=== PATIENT | female | born 1960 | race Caucasian/White ===

== ENCOUNTER 2018-09-25 05:23 | Observation (INO) | payer OTHER ==
--- NOTE | 2018-09-18 11:34 | PREOPHP ---
DATE OF ADMISSION: 09/25/2018 The patient to have surgery with Dr. Herrera De Luna on 09/25/2018. REASON FOR CONSULTATION: Consultation requested by Dr. Herrera De Luna for medical evaluation and cl earance of a 58-year-old woman about to undergo surgery. Thank you, Dr. De Luna, for allowing us to participate in the care of this patient. HISTORY OF PRESENT ILLNESS: Zahra Bowen is a 58-year-old woman, issues with her back, currently be ing admitted for correction of the above. PAST MEDICAL HISTORY AND PAST SURGICAL HISTORY: In terms of her past medical and surgical history, s he has had no medical hospitalizations. From a surgical standpoint, she had 2 C-sections and 1 breas t biopsy. She fractured her left ankle and fibula, which healed with casting. MEDICATIONS: She is currently taking the following medications: 1. Levothyroxine 75 mcg a day. 2. Pepcid [id number] once or twice a day. 3. Variety of p.r.n. medications. ALLERGIES: SHE IS NOT ALLERGIC TO ANY MEDICATIONS. SOCIAL HISTORY: The patient is , has 2 daughters. She does not smoke or drink alcohol. She drinks decaffeinated coffee. She has no difficulty sleeping at night and is employed. FAMILY HISTORY: Both parents are living. Father is 86. Mother is 81. Both are in good health. Th ree siblings are in good health. There is a family history of cancer and hypertension. No diabetes, heart, stroke or thyroid issues. REVIEW OF SYSTEMS: HEENT: Unremarkable. CARDIORESPIRATORY: She denies any chest pain or shortness of breath. GASTROINTESTINAL: No melena or hematemesis; however, does have hyperacidity symptoms. GENITOURINARY: No urgency, frequency. GYNECOLOGIC: Postmenopause, up-to-date with her doctor. MUSCULOSKELETAL: Positive for back pain. NEUROPSYCHIATRIC: Unremarkable. GENERAL HEALTH: As above. PHYSICAL EXAMINATION: VITAL SIGNS: The patient's blood pressure was 128/70, pulse was 76 and regular, respirations were 18 , temperature was 98.5, height 5 feet 3 inches, weight 190 pounds. GENERAL: The patient was noted to be a well-developed, well-nourished female, alert and cooperative, in no apparent acute distress, oriented to time, place, and person. HEAD, EARS, EYES, NOSE AND THROAT: Head was atraumatic. Eyes: Pupils were equal, reacted to light and accommodation. Fundi were benign. Tympanic membranes were unremarkable. Nose was negative. Mo uth was unremarkable. Fair oral hygiene was present. NECK: Supple without any rigidity. Trachea was midline. Thyroid was within normal limits. Neck ve ins were flat. Carotid pulses were equal. No bruits were heard. BACK: Unremarkable. CHEST: Symmetrical. BREASTS AND AXILLARY: Exam did not reveal any obvious masses. Scar from prior biopsy being noted. LUNGS: Clear. HEART: Examination of the heart PMI is fifth intercostal space at the midclavicular line. Regular s inus rhythm was noted. No significant murmurs, rubs, or gallops being elicited. ABDOMEN: Soft, good bowel sounds were noted. No significant organomegaly, masses, or tenderness. S car from prior surgeries was noted midline. GENITALIA AND PELVIRECTAL: Up-to-date Per PCP. EXTREMITIES: Not revealing any clubbing, edema or cyanosis. Peripheral pulses were physiologic. SKIN: Moist and warm without any eruptions. No gross lymphadenopathy was noted. NEUROLOGIC: Grossly intact. IMPRESSIONS: 1. Lumbar disk disease, L4-L5. 2. Hypothyroidism. 3. Gastroesophageal reflux disease. 4. Stable health. REVIEW OF LABORATORY AND OTHER DATA: Revealed the following: The patient's chemistry panel revealed normal electrolytes, glucose, BUN, creatinine, calcium and uric acid, protein, liver function test, magnesium, CBC, UA, PT and PTT were normal. The patient's EKG was borderline revealing left axis, bu t otherwise unremarkable and chest x-ray did not reveal any acute infiltrates, nor were there any acu te cardiopulmonary changes being noted. DISCUSSION: Dr. De Luna, I see no contraindication to this patient undergoing current proposed ivy duy under desired form of anesthesia. We will be more than happy to follow her along with you kizzy ponce her stay at [facility]. Thank you again, Dr. De Luna, for allowing us to participate in the care of this patient. Sincerely, Dictated By: BRIAN CRAWFORD MD SS/NTS Conf#: [id number] DID#: [id number] CC: HERRERA DE LUNA MD;*EndCC*
[2018-09-24 16:38] VITALS: BMI 33.7
[2018-09-25] VITALS (20 sets, daily range): BP systolic 114–148; BP diastolic 51–94; PULSE 80–100; RESP 10–24; Ht 160 cm; Wt 86.1 kg
[~2018-09-25] VITALS: Ht 160 cm; Wt 86.1 kg
[~2018-09-25 05:23] MED LIST: CEFAZOLIN 2 GM/50 ML (PMX) 50 ML IVPB ONE; LACTATED RINGER'S 1L BAG IV ONE; LEVO88TA3 PO
--- NOTE | 2018-09-25 06:45 | PREAC ---
Date/Time of Note Date/Time of Note DATE: 09/25/18 TIME: 06:44 Anesthesia Eval and Record Evaluation Time Pre-Procedure Interview DATE: 09/25/18 TIME: 06:44 Age 58 Sex female NPO: 8 hrs Preoperative diagnosis L4-5 HNP and spinal stenosis Planned procedure L4-5 decompression and microdiscectomy Past Medical History Past Medical History: Includes Endo: Hypothyroid GI: Obesity Surgery & Anesthesia Issues No known issue Meds Anticoagulation: No Beta Di within 24 hr: No Reason Beta Di not given: Pt. not on B-Di Reported Medications Levothyroxine Sodium* (Levothyroxine Sodium*) 88 Mcg Tablet, 88 MCG PO BEFORE BREAKFAST, #30 TAB 09/24/18 Meds reviewed: Yes Allergies Coded Allergies: No Known Allergy (Unverified , 09/25/18) Allergies Reviewed: Yes Labs/Studies Labs Reviewed: Reviewed by anesthesiologist test: N/A Pre-procedure Exam Last vitals Vital Signs Date Temp Pulse Resp B/P (MAP) Pulse Ox O2 O2 Flow FiO2 Time Delivery Rate 09/25/18 97.0 80 16 147/80 97 Room Air 06:39 (102) Airway: Adequate mouth opening Mallampati: Mallampati II Teeth: Normal Lung: Normal Heart: Normal ASA Physical Status ASA physical status: 2 Emergency: None Planned Anesthetic General/MAC: ETT Planned Pain Management Parenteral pain med Pre-operative Attestations Prior to commencing anesthesia and surgery, the patient was re-evaluated, there was verification of: *The patient's identity *The results of appropriate recent lab work and preoperative vital signs *The above evaluation not changing prior to induction *Anesthetic plan, risk benefits, alternative and complications discussed with patient/family; questions answered; patient/family understands, accepts and wishes to proceed. LEIGH MC MD Sep 25, 2018 06:45
[2018-09-25] MEDS ORDERED: CA CHLORIDE 10% 10 ML SYRINGE ONE (06:56)
[2018-09-25] MEDS ORDERED: BUPIVACAINE 0.5%/EPI (SDV) 30 ML INJ ONE (06:56)
[2018-09-25] MEDS ORDERED: POLYMYXIN/BACITRACIN 1L IRRIG ONE (06:56)
[2018-09-25] MEDS ORDERED: SODIUM CL BACTERIOSTATIC 30 ML INJ ONE (06:56)
[2018-09-25] MEDS ORDERED: HEPARIN 1000 UNITS/ML 10 ML INJ ONE (06:56)
[2018-09-25] MEDS ORDERED: THROMBIN 5000 UNIT (RECOTHROM) VIAL ONE ×2 (06:56→08:00)
--- NOTE | 2018-09-25 06:58 | HPN ---
Date/Time of Note Date/Time of Note DATE: 09/25/18 TIME: 06:58 Interval H&P Admission Note Pt. seen H&P reviewed: No system changes WYATT ENCISO MD Sep 25, 2018 06:58
[2018-09-25] MEDS ORDERED: HYDROCODONE/APAP (10/325) TAB PO PRN (07:00)
[2018-09-25] MEDS ORDERED: MAGNESIUM HYDROXIDE 30ML CUP PO PRN (07:00)
[2018-09-25] MEDS ORDERED: NALOXONE (0.4 MG/ML) INJ IV PRN (07:00)
[2018-09-25] MEDS ORDERED: HYDROmorphONE 0.5 MG/0.5 ML SYG IV PRN (07:00)
[2018-09-25] MEDS: CEFAZOLIN 1 GM/50 ML (PMX) 50 ML IVPB SCH ×3 (07:00→22:58)
[2018-09-25] MEDS ORDERED: BISACODYL 10 MG SUPP PR PRN (07:00)
[2018-09-25] MEDS ORDERED: CEPASTAT LOZENGE MT PRN (07:00)
[2018-09-25] MEDS ORDERED: ACETAMINOPHEN 325 MG TAB PO PRN (07:00)
[2018-09-25] MEDS ORDERED: DIPHENHYDRAMINE 25 MG CAP PO PRN (07:00)
[2018-09-25] MEDS ORDERED: SEVOFLURANE 15 MIN ONE (07:00)
[2018-09-25] MEDS ORDERED: DIPHENHYDRAMINE 50 MG INJ IV PRN ×2 (07:00→08:30)
[2018-09-25] MEDS ORDERED: LIDOCAINE 2% (SDV) 5 ML INJ ONE (07:03)
[2018-09-25] MEDS ORDERED: PROPOFOL 20 ML ONE (07:03)
[2018-09-25] MEDS ORDERED: GLYCOPYRROLATE 0.4 MG INJ ONE ×2 (07:03→08:03)
[2018-09-25] MEDS ORDERED: SUCCINYLCHOLINE CHLORIDE 100 MG/5 ML SYG IV ONE (07:03)
[2018-09-25] MEDS ORDERED: NEOSTIGMINE 3 MG/3 ML SYRINGE ONE ×2 (07:03→08:03)
[2018-09-25] MEDS ORDERED: ROCURONIUM 50 MG INJ ONE ×2 (07:03→08:03)
[2018-09-25] MEDS ORDERED: MEPERIDINE 100 MG INJ ONE (07:04)
[2018-09-25] MEDS ORDERED: GELATIN SIZE 100 SPONGE ONE (07:46)
[2018-09-25] MEDS ORDERED: ONDANSETRON 4 MG INJ ONE (08:02)
[2018-09-25] MEDS ORDERED: CEFAZOLIN 1 GM INJ ONE (08:02)
[2018-09-25] MEDS ORDERED: METOCLOPRAMIDE 10 MG INJ ONE (08:02)
[2018-09-25] MEDS ORDERED: ONDANSETRON 4 MG INJ IV PRN (08:30)
[2018-09-25] MEDS ORDERED: EPHEDrine 25 MG/5 ML SYG IV PRN (08:30)
[2018-09-25] MEDS ORDERED: MIDAZOLAM 1 MG/ML 2 ML INJ IV PRN (08:30)
[2018-09-25] MEDS ORDERED: METOCLOPRAMIDE 10 MG INJ IV PRN (08:30)
[2018-09-25] MEDS ORDERED: FENTAnyl 50 MCG/ML VIAL IV PRN ×2 (08:30)
[2018-09-25] MEDS ORDERED: MEPERIDINE 25 MG INJ IV PRN (08:30)
[2018-09-25] MEDS ORDERED: LABETALOL HCL 20MG INJ IV PRN (08:30)
[2018-09-25] MEDS ORDERED: hydrALAzine 20 MG INJ IV PRN (08:30)
[2018-09-25] MEDS ORDERED: HYDROmorphONE 1 MG/5 ML IV SYRINGE IV PRN ×2 (08:30)
--- NOTE | 2018-09-25 09:06 | SIPON ---
Date/Time of Note Date/Time of Note DATE: 09/25/18 TIME: 09:05 Operative Report Preoperative Diagnosis Right L4-5 disc herniation Postoperative Diagnosis Right L4-5 disc herniation Operation/Procedure Performed Right L4-5 discectomy Surgeon see signature line assistant director of security Haily Aguilar Anesthesia: general Estimated blood loss: 10 - 50 ml's Transfusion Required none Specimen Disc Grafts/Implants none Complications none WYATT ENCISO MD Sep 25, 2018 09:06
[2018-09-25] MEDS: FENTAnyl 50 MCG/ML VIAL IV PRN ×2 (09:40→09:50)
--- NOTE | 2018-09-25 10:07 | OPR ---
DATE OF OPERATION: 09/25/2018 PREOPERATIVE DIAGNOSES: Right L4-L5 disk herniation with radiculopathy. POSTOPERATIVE DIAGNOSIS: Right L4-L5 disk herniation with radiculopathy. PROCEDURES PERFORMED: 1. Right L4-5 hemilaminotomy, partial medial facetectomy, foraminotomy. 2. Right L4-L5 lumbar microdiskectomy. 3. Use of operative microscope. 4. Lateral localizing film x2. 5. Intraoperative neuromonitoring. PRIMARY SURGEON: Herrera De Luna MD LABORER PETROLEUM REFINERY: Haily Aguilar PA-C NEED FOR LEGAL SERVICE SPECIALIST: During this spinal surgical procedure, my account management assistant was used to retract and protect the spinal nerves and dural sac. My account management assistant also employed the suction catheters to ev acuate blood from the surgical field to improve visualization of the neural structures. The assistan t was medically necessary to facilitate the completion of the surgery in a safe and expeditious [facility] r. [facility] regulations, as well as hospital bylaws, preclude the use of non-licensed [facility] care personnel, such as operating room technicians, to perform these functions. FINDINGS: Neuromonitoring at the start of the case revealed right L4 and right L5 amplitude down 40% . At the end of the case, nerve signals returned to normal. The patient had right-sided herniation at the L4-L5 level. There is significant epidural vascularization identified. ESTIMATED BLOOD LOSS: 30 mL. DRAINS: None. SPECIMENS: L4-5 disk. COMPLICATIONS OF PROCEDURES: None. ANESTHESIOLOGIST: Dr. Berger. TYPE OF ANESTHESIA: General. INDICATIONS FOR PROCEDURE: This is a 58-year-old female with a right-sided disk herniation and leg p ain. She failed nonoperative measures; therefore, I recommended that she undergo the above procedure . Preoperatively, we discussed risks, benefits, alternatives. She understood and wished to proceed. DESCRIPTION OF PROCEDURE IN DETAIL: The patient was identified in preoperative holding area, given A ncef antibiotic, taken to the operating room, where she was successfully placed under general anesthe jose j. Neuromonitoring leads were placed, sequential compressive devices were applied. Remote intraop erative neuromonitoring was performed by Dr. Cheney from 06:56 until 9:05 to include SSEP, MEP, an d EMG performed by Marqui. The patient was placed on the operating table in prone position over a Jorge frame. All bony prominences were well padded. Back was then prepped and draped in th e usual sterile fashion. Spinal needles were placed and a lateral localizing film was obtained. I n ext injected the paraspinal musculature with Marcaine and epinephrine. Incision was then made over t he L4-5 level. Incision was taken down to dorsal fascia, which was incised with Bovie cautery. I th en subperiosteally dissected the right L4 and L5 lamina. Cindi retractor was placed. Kerrison was placed under the L4 lamina. Repeat lateral film was obtained to confirm the correct levels. Once th is was confirmed, microscope was brought in and a right-sided hemilaminotomy, partial medial facetect durga, foraminotomy were then performed. Ligamentum flavum was sharply dissected. Epidural vasculariz ation was identified and hemostasis was achieved. My account management assistant then retracted neural elements medial ly. Annulotomy was performed followed by a limited microdiskectomy removing the loose fragments. On ce this was done, all nerve signals returned to normal. I irrigated the disk space and the wound. H emostasis was achieved. A Valsalva maneuver was performed and there was no leak of CSF. The wound w as dry and therefore, I elected not to place a drain. PPP and thrombin was then injected over the du ra for hemostatic purposes. Retractors removed. I closed deep fascia with #1 Vicryl stitch. I clos ed subcutaneous tissue with a 2-0 Vicryl stitch. Microscope was taken off the field. A 4-0 Monocryl closure was then performed. Dermabond was then applied. The patient was then awakened from anesthe jose j and taken to the recovery room in stable condition. Lap, sponge, and instrument counts were joseph ect x2. There were no apparent complications during the procedure. The patient will be admitted to the [facility] for routine postoperative care to include pain co ntrol and neurovascular checks, antibiotics, and physical therapy. Dictated By: HERRERA WEBB/TREVOR Conf#: [id number] DID#: [id number] CC: HAILY AGUILAR;*EndCC*
[2018-09-25] MEDS: DOCUSATE SODIUM 100 MG CAP PO SCH ×2 (10:19→20:08)
[2018-09-25] MEDS: HYDROmorphONE 1 MG/5 ML IV SYRINGE IV PRN ×2 (10:19→11:45)
--- NOTE | 2018-09-25 11:00 | PAC ---
Date/Time of Note Date/Time of Note DATE: 09/25/18 TIME: 10:59 Post-Anesthesia Notes Post-Anesthesia Note Last documented vital signs Vital Signs Date Temp Pulse Resp B/P (MAP) Pulse Ox O2 O2 Flow FiO2 Time Delivery Rate 09/25/18 92 24 140/64 99 Nasal 10:22 (89) Cannula 09/25/18 3.0 10:03 09/25/18 98.3 09:30 Activity: WNL Respiratory function: WNL Cardiovascular function: WNL Mental status: Baseline Pain reasonably controlled: Yes Hydration appropriate: Yes Nausea/Vomiting absent: Yes Comments BT: 98.2 LEIGH CM MD Sep 25, 2018 11:00
--- NOTE | 2018-09-25 14:02 | CONS ---
Assessment/Plan Assessment/Plan Problems: (1) Lumbar disc disease Status: Chronic Comment: L4 and L5 (2) Status post hemilaminotomy Status: Acute Comment: s/p Right L4-5 hemilaminotomy, partial medial facetectomy, foraminotomy with right L4-L5 lumbar microdiskectomy. Pain managment and physical therapy per Dr. Hendricks (3) GERD (gastroesophageal reflux disease) Status: Chronic (4) Hypothyroidism Status: Chronic Assessment/Plan (Daily) Clinically stable post operatively. Will resume patient's thyroid replacement and GI medications. Consultation Date/Type/Reason Admit Date/Time Sep 25, 2018 at 06:58 Date of Consultation: Sep 25, 2018 Type of Consult Internal Medicine Reason for Consultation Post op medical management of internal medical related issues Requesting Provider: WYATT ENCISO MD Date/Time of Note DATE: 09/25/18 TIME: 13:51 Hx of Present Illness 58 year old woman with lumbar disk disease at L4-L5 who is s/p right L4-5 hemilaminotomy, partial medial facetectomy, foraminotomy. with right L4-L5 lumbar microdiskectomy. Patient complaint of neck and left shoulder pain otherwise ROS negative. Past Medical History Medical History: GERD, hypothyroid Home Meds Reported Medications Levothyroxine Sodium* (Levothyroxine Sodium*) 88 Mcg Tablet, 88 MCG PO BEFORE BREAKFAST, #30 TAB 09/24/18 Medications Current Medications Potassium Chloride/Dextrose/ Sod Cl 1,000 ml @ 100 mls/hr Q10H IV ; Start 09/25/18 at 06:58 Acetaminophen/ Hydrocodone Bitart (Archbald (10/325)) 1 tab Q4H PRN PO .PAIN 1-5; Start 09/25/18 at 07:00 Acetaminophen/ Hydrocodone Bitart (Archbald (10/325)) 2 tab Q4H PRN PO .PAIN 6-10; Start 09/25/18 at 07:00 Hydromorphone HCl (Dilaudid) 0.2 mg Q1H PRN IV .BREAKTHROUGH PAIN; Start 09/25/18 at 07:00 Cefazolin Sodium 50 ml @ 100 mls/hr Q8H IVPB ; Start 09/25/18 at 07:00; Stop 09/25/18 at 23:29 Ondansetron HCl (Zofran Inj) 4 mg Q6H PRN IV NAUSEA/VOMITING; Start 09/25/18 at 07:00 Bisacodyl (Dulcolax Supp) 10 mg DAILY PRN NE .CONSTIPATION; Start 09/25/18 at 07:00 Docusate Sodium (Colace) 100 mg BID PO Last administered on 09/25/18at 10:19; Admin Dose 100 MG; Start 09/25/18 at 09:00 Magnesium Hydroxide (Milk Of Mag) 30 ml HS PRN PO .CONSTIPATION/DYSPEPSIA; Start 09/25/18 at 07:00 Acetaminophen (Tylenol Tab) 650 mg Q4H PRN PO GLASGOW OR TEMP GREATER THAN 101.3F; Start 09/25/18 at 07:00 Cyclobenzaprine HCl (Flexeril) 5 mg TID PRN PO .MUSCLE SPASM; Start 09/25/18 at 07:00 Phenol (Cepastat Lozenge) 1 lozenge PRN PRN MT .SORE THROAT; Start 09/25/18 at 07:00 Diphenhydramine HCl (Benadryl) 25 mg Q6H PRN PO .ITCHING; Start 09/25/18 at 07:00 Diphenhydramine HCl (Benadryl) 25 mg Q6H PRN IV .ITCHING; Start 09/25/18 at 07:00 Naloxone HCl (Narcan) 0.2 mg Q2M PRN IV .RR 8 BREATHS/MIN OR LESS; Start 09/25/18 at 07:00 Levothyroxine Sodium (Synthroid) 88 mcg BEFORE BREAKFAST PO ; Start 09/26/18 at 07:00 Allergies: Coded Allergies: No Known Allergy (Unverified , 09/25/18) Past Surgical History Past Surgical Hx: other ( and breast biopsy) Family History Significant Family History: cancer, hypertension Social History Alcohol Use: none Smoking Status: Never smoker Drug Use: none Exam/Review of Systems Exam Vitals Vital Signs Date Temp Pulse Resp B/P (MAP) Pulse Ox O2 O2 Flow FiO2 Time Delivery Rate 09/25/18 98.3 11:47 09/25/18 88 22 131/76 97 Nasal 10:57 (94) Cannula 09/25/18 3.0 10:03 Constitutional: alert, oriented Psych: nl mood/affect Head: normocephalic Eyes: nl conjunctiva, EOMI, PERRL Neck: supple Respiratory: clear to auscultation Cardiovascular: regular rate and rhythm Gastrointestinal: soft Musculoskeletal: nl extremities to inspection Extremities: normal pulses Neurological: other (moving all extremities) Medications Medication Current Medications Potassium Chloride/Dextrose/ Sod Cl 1,000 ml @ 100 mls/hr Q10H IV ; Start 09/25/18 at 06:58 Acetaminophen/ Hydrocodone Bitart (Archbald (10/325)) 1 tab Q4H PRN PO .PAIN 1-5; Start 09/25/18 at 07:00 Acetaminophen/ Hydrocodone Bitart (Archbald (10/325)) 2 tab Q4H PRN PO .PAIN 6-10; Start 09/25/18 at 07:00 Hydromorphone HCl (Dilaudid) 0.2 mg Q1H PRN IV .BREAKTHROUGH PAIN; Start 09/25/18 at 07:00 Cefazolin Sodium 50 ml @ 100 mls/hr Q8H IVPB ; Start 09/25/18 at 07:00; Stop at 23:29 Ondansetron HCl (Zofran Inj) 4 mg Q6H PRN IV NAUSEA/VOMITING; Start 09/25/18 at 07:00 Bisacodyl (Dulcolax Supp) 10 mg DAILY PRN NE .CONSTIPATION; Start 09/25/18 at 07:00 Docusate Sodium (Colace) 100 mg BID PO Last administered on 09/25/18at 10:19; Admin Dose 100 MG; Start 09/25/18 at 09:00 Magnesium Hydroxide (Milk Of Mag) 30 ml HS PRN PO .CONSTIPATION/DYSPEPSIA; Sta rt 09/25/18 at 07:00 Acetaminophen (Tylenol Tab) 650 mg Q4H PRN PO GLASGOW OR TEMP GREATER THAN 101.3F; Start 09/25/18 at 07:00 Cyclobenzaprine HCl (Flexeril) 5 mg TID PRN PO .MUSCLE SPASM; Start 09/25/18 at 07:00 Phenol (Cepastat Lozenge) 1 lozenge PRN PRN MT .SORE THROAT; Start 09/25/18 at 07:00 Diphenhydramine HCl (Benadryl) 25 mg Q6H PRN PO .ITCHING; Start 09/25/18 at 07:00 Diphenhydramine HCl (Benadryl) 25 mg Q6H PRN IV .ITCHING; Start 09/25/18 at 07:00 Naloxone HCl (Narcan) 0.2 mg Q2M PRN IV .RR 8 BREATHS/MIN OR LESS; Start 09/25/18 at 07:00 Levothyroxine Sodium (Synthroid) 88 mcg BEFORE BREAKFAST PO ; Start 09/26/18 at 07:00 TAWANNA LARA MD Sep 25, 2018 14:02
[2018-09-25] MEDS: D5W-0.45 NACL + KCL 20 MEQ 1,000 ML IV SCH ×2 (15:11→16:23)
[2018-09-25] MEDS: HYDROCODONE/APAP (10/325) TAB PO PRN ×2 (15:25→20:09)
[2018-09-25] MEDS: ONDANSETRON 4 MG INJ IV PRN (18:08)
[2018-09-25] MEDS: CYCLOBENZAPRINE 10 MG TAB PO PRN (23:01)
[2018-09-26 01:30] VITALS: BP 147/69; PULSE 107; RESP 18
[2018-09-26] MEDS: D5W-0.45 NACL + KCL 20 MEQ 1,000 ML IV SCH ×2 (02:31→12:58)
[2018-09-26] MEDS: HYDROCODONE/APAP (10/325) TAB PO PRN ×2 (05:53→14:19)
[2018-09-26] MEDS: ONDANSETRON 4 MG INJ IV PRN (06:19)
[2018-09-26] MEDS ORDERED: LEVOTHYROXINE 88 MCG TAB PO SCH (07:00)
[2018-09-26 07:25] VITALS: BP 124/59; PULSE 104; RESP 18
[2018-09-26] MEDS ORDERED: MAGNESIUM HYDROXIDE 30ML CUP PO PRN (08:30)
[2018-09-26] MEDS: CYCLOBENZAPRINE 10 MG TAB PO PRN (08:50)
[2018-09-26] MEDS: DOCUSATE SODIUM 100 MG CAP PO SCH (08:50)
[2018-09-26 13:43] VITALS: BP 125/60; PULSE 96; RESP 18
--- NOTE | 2018-09-26 14:31 | DS ---
Date/Time of Note Date/Time of Note DATE: 09/26/18 TIME: 14:30 Discharge Summary Admission/Discharge Info Admit Date/Time Sep 25, 2018 at 06:58 Discharge Date/Time September 26 Discharge Diagnosis Status post lumbar discectomy Patient Condition: Good Procedures Lumbar discectomy Hospital Course Patient was admitted [facility] after undergoing a lumbar discectomy. Her postoperative course was uncomplicated. By postoperative day 1 she was deemed stable for discharge with follow-up arranged with the undersigned. Home Meds Reported Medications Levothyroxine Sodium* (Levothyroxine Sodium*) 88 Mcg Tablet, 88 MCG PO BEFORE BREAKFAST, #30 TAB 09/24/18 Primary Care Provider Care Physician No Primary Pending Labs Laboratory Tests Test 09/26/18 04:23 09/26/18 07:17 White Blood Count 16.2 10^3/ul (4.8-10.8) Red Blood Count 3.61 10^6/ul (4.20-5.40) Hemoglobin 11.3 g/dl (12.0-16.0) Hematocrit 35.4 % (37.0-47.0) Mean Corpuscular Volume 98.1 fl (82.0-101.0) Mean Corpuscular Hemoglobin 31.3 pg (29.0-33.0) Mean Corpuscular 31.9 g/dl (32.0-37.0) Hemoglobin Concent Red Cell Distribution Width 13.1 % (11.5-14.5) Platelet Count 198 10^3/UL (140-415) Mean Platelet Volume 11.7 fl (7.4-10.4) Immature Granulocytes % 0.600 % (0.001-0.429) Neutrophils % 85.9 % (39.0-77.0) Lymphocytes % 7.1 % (15.0-51.0) Monocytes % 6.2 % (0.0-11.0) Eosinophils % 0.1 % (0.0-7.0) Basophils % 0.1 % (0.0-2.0) Nucleated Red Blood Cells % 0.0 /100WBC (0.0-0.0) Immature Granulocytes # 0.100 10^3/ul (0.0-0.031) Neutrophils # 13.9 10^3/ul (1.6-7.5) Lymphocytes # 1.2 10^3/ul (0.8-2.9) Monocytes # 1.0 10^3/ul (0.3-0.9) Eosinophils # 0.0 10^3/ul (0.0-0.5) Basophils # 0.0 10^3/ul (0.0-0.1) Nucleated Red Blood Cells # 0.0 10^3/ul (0.0-0.0) Sodium Level 138 mmol/L (135-144) Potassium Level 3.8 mmol/L (3.5-5.1) Chloride Level 102 mmol/L (97-110) Carbon Dioxide Level 27 mmol/L (21-31) Anion Gap 9 (5-13) Blood Urea Nitrogen 10 mg/dl (7-20) Creatinine 0.42 mg/dl (0.44-1.00) Est Glomerular Filtrat > 60 mL/min (>60) Rate mL/min Glucose Level 135 mg/dl (70-220) Calcium Level 8.8 mg/dl (8.4-10.2) Magnesium Level 1.8 mg/dl (1.7-2.5) Lab Scanned Report REFERENCE LAB [id number] WYATT ENCISO MD Sep 26, 2018 14:31
== END 2018-09-26 16:06 | disposition home or self-care (01) ==
LOC: SDS 05:23 → REC 06:58 → INTOOBSV 06:58 → MS1 14:39
PROVIDERS: ADMIT Specialist; ATTEND Specialist
DX: M51.16 Intervertebral disc disorders with radiculopathy, lumbar region (principal); K21.9 Gastro-esophageal reflux disease without esophagitis; E03.9 Hypothyroidism, unspecified
CPT/HCPCS: 63030; 72020; 80048; 83735; 85025; 86999; 88304; 97110; 97116; 97161; 97530; 99217; G0378; J0690; J1170; J1644; J2175; J2405; J2765; J3010; J3480; J2710